=== PATIENT | female | born 1965 | race Caucasian/White ===

== ENCOUNTER → 2018-12-30 | Outpatient (CLI) | payer BC | END | disposition home or self-care (01) | LOC: LAB EV 15:00 → LAB SHORT 15:00 | DX: N39.0 Urinary tract infection, site not specified (principal) | CPT/HCPCS: 87086 ==

== ENCOUNTER 2023-01-14 18:31 | Emergency (ER) | payer BC ==
[~2023-01-14] VITALS: Ht 160 cm; Wt 77.1 kg
[2023-01-14 18:38] VITALS: BP 169/99
== END 2023-01-14 19:40 | disposition home or self-care (01) ==
LOC: ER 18:31
DX: S01.21XA Laceration without foreign body of nose, initial encounter (principal); W20.8XXA Other cause of strike by thrown, projected or falling object, initial encounter
CPT/HCPCS: 99282

== ENCOUNTER → 2023-02-09 | Outpatient (CLI) | payer BC ==
[2023-02-09 17:29] LABS: Adenovirus F 40/41 Not Detected (NOT DETECT); Astrovirus Not Detected (NOT DETECT); Campylobacter Sp Not Detected (NOT DETECT); Cryptosporidium Not Detected (NOT DETECT); Cyclospora Cayetanensis Not Detected (NOT DETECT); E. Coli O157 Not Detected (NOT DETECT); Entamoeba Histolytica Not Detected (NOT DETECT); Enteroaggregative E. coli-EAEC Not Detected (NOT DETECT); Enteropathogenic E. coli-EPEC Not Detected (NOT DETECT); Enterotoxigenic E. coli-ETEC Not Detected (NOT DETECT); Giardia Lamblia Not Detected (NOT DETECT); Norovirus GI/GII Not Detected (NOT DETECT); Plesiomonas Shigelloides Not Detected (NOT DETECT); Rotavirus A Not Detected (NOT DETECT); Salmonella Sp Not Detected (NOT DETECT); Sapovirus Not Detected (NOT DETECT); Shiga Toxin-prod E. coli-STEC Not Detected (NOT DETECT); Shigella/Enteroin E. coli-EIEC Not Detected (NOT DETECT); Vibrio Cholerae Not Detected (NOT DETECT); Vibrio Sp Not Detected (NOT DETECT); Yersinia Enterocolitica Not Detected (NOT DETECT)
== END ==
LOC: LAB SHORT 13:30
PROVIDERS: Physician Assistant
DX: R19.7 Diarrhea, unspecified (principal)
CPT/HCPCS: 87507

== ENCOUNTER 2023-06-27 09:05 | Day surgery (SDC) | payer BC ==
[~2023-06-27] VITALS: Ht 162.6 cm; Wt 84.2 kg
[~2023-06-27 09:05] MED LIST: ASCO500; Aldactone50 MG PO; ESTRADIOL1 MG; Prozac20 MG PO; TRIM100; VITAMIN D5000 UNIT
[2023-06-27] MEDS ORDERED: PROBIOTIC1 EA13 (09:16)
[2023-06-27] MEDS ORDERED: DOTTI1 EA18 (09:16)
[2023-06-27] MEDS ORDERED: VALA500 (09:16)
[2023-06-27 11:22] VITALS: BP 114/86
--- NOTE | 2023-06-27 15:06 | NUR ---
06/27/23 1506 Chau Schumacher LATE ENTRY: IN OR SPECIMENS WERE CLARIFIED WITH KEVIN "RANDOM COLON BXS, SIGMOID POLYP, AND RECTAL POLYP" AND KEVIN AGREED. PATHOLOGY LAB LATER CALLED RN AND STATED THEY RECIEVED TWO JARS, RANDOM COLON BXS AND SIGMOID POLYP. AFTER DISSCUSSION WITH KEVIN AND , IT IS LED TO BELIEVE THAT TECH INADVERTANTLY PLACED A POLYP IN THE RANDOM COLON BXS JAR. GAVE RN A "CLINICAL REPORT FOR PATHOLOGIST" FORM STATING THE FOLLOWING: FOR SPECIMEN A: "5MM POLYP REMOVED FROM PROXIMAL SIGMOID COLON (GREATER LIKELYHOOD OF BENIGN ADENOMA) THAT I AM LED TO BELIEVE LIKELY/INADVERTENTLY PLACED INTO RANDOM COLON BX D/T LOOSE STOOL" FOR SPECIMEN B: "I BELIEVE THIS IS THE 5MM DISTAL RECTAL POLYP. I SUSPECT THIS MAY BE MORE LIKELY HYPERPLASTIC THAN ADENOMATOUS." REPORT WRITTEN BY DR. RAMON LUNA CASE. NEW PATH ORDERS PLACED "RANDOM COLON BXS AND PROXIMAL SIGMOID POLYP" AND "DISTAL RECTAL POLYP"
== END 2023-06-27 11:21 | disposition home or self-care (01) ==
LOC: ORSCSDS 09:05
PROVIDERS: Internal Medicine Gastroenterology
PROC: 0DBE8ZX Excision of Large Intestine, Via Natural or Artificial Opening Endoscopic, Diagnostic (ICD-10-PCS; principal; 2023-06-27 10:15)
PROC: 0DBN8ZX Excision of Sigmoid Colon, Via Natural or Artificial Opening Endoscopic, Diagnostic (ICD-10-PCS; principal; 2023-06-27 10:15)
PROC: 0DBP8ZX Excision of Rectum, Via Natural or Artificial Opening Endoscopic, Diagnostic (ICD-10-PCS; principal; 2023-06-27 10:15)
DX: R19.7 Diarrhea, unspecified (principal); D12.8 Benign neoplasm of rectum; K57.30 Diverticulosis of large intestine without perforation or abscess without bleeding; N18.30 Chronic kidney disease, stage 3 unspecified; Z79.899 Other long term (current) drug therapy
CPT/HCPCS: 88305; J2704; J7120

== ENCOUNTER → 2024-04-01 | Outpatient (CLI) | payer BC ==
[~2024-04-01] MED LIST changes: +DOTTI1 EA18; +PROBIOTIC1 EA13; +VALA500
[2024-04-01 12:09] LABS: Source, Urine Clean Catch
[2024-04-01 13:17] LABS: Bilirubin, Urine Neg (Neg); Blood, Urine 2+ (Neg); Color, Urine Yellow (P-Yellow); Glucose Qualitative, Urine Neg (Neg); Ketones, Urine Neg (Neg); Leukocyte Esterase, Urine 1+ (Neg); Nitrite, Urine Neg (Neg); Protein, Urine Neg (Neg); Specific Gravity, Urine 1.015 (1.003-1.022); Urobilinogen, Urine NORM (Normal)
[2024-04-01 14:10] LABS: Appearance, Urine Hazy (Clear)
[2024-04-01 14:11] LABS: White Blood Cells, Urine 25-50 /hpf (0-5)
[2024-04-01 14:12] LABS: Bacteria Many /hpf; Red Blood Cells, Urine 0-2 /hpf (0-2); Squamous Epithelial Cells Rare /hpf (Few)
== END | disposition home or self-care (01) ==
LOC: LAB SHORT 12:08 → LAB 12:08
PROVIDERS: Physician Assistant
DX: R30.0 Dysuria (principal)
CPT/HCPCS: 81001; 87086

== ENCOUNTER → 2024-09-17 | Outpatient (CLI) | payer BC | LOC: LAB SHORT 14:37 → LAB 14:37 | DX: L08.0 Pyoderma (principal) | CPT/HCPCS: 87070; 87205 ==